=== PATIENT | female | born 1985 | race Caucasian/White ===

== ENCOUNTER 2020-01-25 13:09 | Outpatient (REF) | payer BC, SELFPAY ==
[2020-01-25 13:38] LABS: MANUAL DIFF FLAG NO
[2020-01-25 13:41] LABS: Basophils Absolute Auto 0.1 X10*3/uL (0.0-0.2); Basophils Percent Auto 0.5 % (0-2); Eosinophils Absolute Auto 0.1 X10*3/uL (0.0-0.4); Eosinophils Percent Auto 0.8 % (0-4); Hemoglobin 13.8 g/dl (12.0-16.0); Imm Gran Abs Auto 0.03 X10*3/uL (0.00-0.03); Imm Gran Pct Auto 0.3 % (0.0-0.4); Lymphocytes Percent Auto 21.6 % (20-40); Mean Corpuscular HGB Conc 32.9 g/dl (31.0-35.0); Mean Corpuscular Hemoglobin 28.3 pg (27.0-33.0); Mean Corpuscular Volume 86.1 fL (80-98); Mean Platelet Volume 8.9 fL (9.4-12.3); Monocytes Absolute Auto 0.9 X10*3/uL (0.1-1.2); Neutrophils Absolute Auto 6.1 X10*3/uL (2.0-8.3); Neutrophils Percent Auto 66.8 % (45-73); Platelet Count 473 X10*3/uL (160-400); Red Blood Count 4.88 X10*6/uL (4.20-5.50); Red Cell Distribution Width 13.2 % (11.0-16.0); White Blood Count 9.1 X10*3/uL (4.8-10.8)
[2020-01-25 14:16] LABS: Alanine Aminotransferase 20 U/L (0-31); Albumin Level 4.2 g/dL (3.5-5.0); Alkaline Phosphatase 79 U/L (39-117); Anion Gap 12 (12-20); Aspartate Amino Transferase 19 U/L (5-31); Bilirubin Total 0.3 mg/dL (0.0-1.0); Blood Urea Nitrogen 7 mg/dL (9-16); Carbon Dioxide 27 mmol/L (22-29); Chloride 104 mmol/L (96-108); Cholesterol 173 mg/dL; Estimated Glomerular Filt Rate > 60; Glucose Random 85 mg/dL (60-115); Potassium 4.3 mmol/l (3.3-5.1); Sodium 139 mmol/L (135-145); Total Protein 7.6 g/dL (6.5-8.0)
[2020-01-25 14:18] LABS: Calcium 9.3 mg/dL (8.4-10.2)
[2020-01-25 14:39] LABS: Free T4 (Free Thyroxine) 1.19 ng/dL (0.71-1.85); Thyroid Stimulating Hormone 0.37 mIU/mL (0.32-4.0)
[2020-01-25 15:31] LABS: Vitamin B12 564 pg/mL (200-900)
[2020-01-26 08:06] LABS: Thyroid Peroxidase Antibodies 1 IU/mL (<9)
== END 2020-01-25 13:10 | disposition home or self-care (01) ==
LOC: HO.10HDL 13:09
PROVIDERS: Visit Provider Internal Medicine
DX: R00.2 Palpitations (principal); R63.5 Abnormal weight gain; R53.83 Other fatigue
CPT/HCPCS: 36415; 80053; 82465; 82607; 84439; 84443; 85025; 86376

== ENCOUNTER 2020-02-19 07:58 | Outpatient (REF) | payer BC, SELFPAY ==
--- NOTE | 2020-02-19 | US_ITS ---
EXAMINATION: US THYROID CLINICAL INFORMATION: Enlarged thyroid. COMPARISON: Thyroid soft tissue ultrasound dated 10/29/2016 TECHNIQUE: Linear transducer norris-scale and color Doppler examination with attention to the region of the thyroid. FINDINGS: SIZE: Measurements of the thyroid lobes and nodules are given in sagittal, anteroposterior and transverse dimensions respectively. Right Thyroid Lobe: 5.6 x 1.8 x 1.9 cm, volume 10.2 mL. Previously 5.6 x 1.6 x 2.1 cm, volume 9.8 mL. Parenchyma: The gland echotexture is heterogeneous. Thyroid vascularity is normal. Left Thyroid Lobe: 5.7 x 1.7 x 1.9 cm, volume 9.6 mL. Previously 5.9 x 1.6 x 1.9 cm, volume 9.4 mL. Parenchyma: The gland echotexture is heterogeneous. Thyroid vascularity is normal. Isthmus: 0.8 cm in maximum AP dimension. Previously 0.4 cm. RIGHT THYROID LOBE: There is 1 nodule seen. 1. Location: Mid. Size: 0.2 x 0.1 x 0.2 cm. Previous: 0.2 x 0.1 x 0.2 cm. Nodule characteristics: Hypoechoic, irregularly-shaped and no intranodular flow. ISTHMUS: No nodules. LEFT THYROID LOBE: There are 2 nodules seen. 1. Location: Upper. Size: 0.3 x 0.1 x 0.2 cm. Previous: New. Nodule characteristics: Hypoechoic, smoothly marginated with no intranodular flow. 2. Location: Lower. Size: 0.3 x 0.2 x 0.2 cm. Previous: 0.3 x 0.2 x 0.2 cm. Nodule characteristics: Hypoechoic, smoothly marginated with no intranodular flow. NODES: No lymphadenopathy is seen in the tissue surrounding the thyroid gland. US/US thyroid IMPRESSION: Subcentimeter nonsuspicious nodules in both lobes. They are unchanged to previous study except for a new nodule in the left lobe.
== END 2020-02-19 07:59 | disposition home or self-care (01) ==
LOC: HO.US 07:58
PROVIDERS: PCP Internal Medicine; Visit Provider Internal Medicine
DX: E07.9 Disorder of thyroid, unspecified (principal)
CPT/HCPCS: 76536

== ENCOUNTER 2021-09-08 15:14 | Outpatient (REF) | payer BC, SELFPAY ==
[2021-09-08 15:38] LABS: MANUAL DIFF FLAG NO
[2021-09-08 16:24] LABS: Basophils Percent Auto 0.4 % (0-2); Eosinophils Absolute Auto 0.1 X10*3/uL (0.0-0.4); Eosinophils Percent Auto 0.8 % (0-4); Hematocrit 40.4 % (37.0-47.0); Hemoglobin 13.1 g/dl (12.0-16.0); Imm Gran Abs Auto 0.04 X10*3/uL (0.00-0.03); Imm Gran Pct Auto 0.4 % (0.0-0.4); Lymphocytes Absolute Auto 2.1 X10*3/uL (1.2-4.9); Lymphocytes Percent Auto 20.9 % (20-40); Mean Corpuscular HGB Conc 32.4 g/dl (31.0-35.0); Mean Corpuscular Hemoglobin 27.8 pg (27.0-33.0); Mean Corpuscular Volume 85.6 fL (80.0-98.0); Mean Platelet Volume 9.3 fL (9.4-12.3); Monocytes Absolute Auto 0.9 X10*3/uL (0.1-1.2); Monocytes Percent Auto 8.8 % (2-11); Neutrophils Absolute Auto 7.1 x10*3/uL (2.0-8.3); Neutrophils Percent Auto 68.7 % (45-73); Platelet Count 453 X10*3/uL (160-400); Red Blood Count 4.72 X10*6/uL (4.20-5.50); Red Cell Distribution Width 13.3 % (11.0-16.0); White Blood Count 10.3 X10*3/uL (4.8-10.8)
[2021-09-08 16:41] LABS: Alanine Aminotransferase 18 U/L (0-31); Alkaline Phosphatase 62 U/L (39-117); Anion Gap 12 (12-20); Aspartate Amino Transferase 18 U/L (5-31); Bilirubin Total 0.4 mg/dL (0.0-1.0); Blood Urea Nitrogen 11 mg/dL (9-16); Calcium 9.7 mg/dL (8.4-10.2); Carbon Dioxide 24 mmol/L (22-29); Chloride 106 mmol/L (96-108); Cholesterol 159 mg/dL; Estimated Glomerular Filt Rate > 60; Glucose Random 95 mg/dL (60-115); Potassium 4.4 mmol/L (3.3-5.1); Sodium 138 mmol/L (135-145); Total Protein 7.5 g/dL (6.5-8.0)
[2021-09-09 05:31] LABS: HBsAGNum1 0.49 S/CO (0.00-0.99); Hepatitis B Surface Antigen Negative (Negative)
[2021-09-10 21:34] LABS: Rubella IgG Antibody 3.56 Index
[2021-09-11 08:58] LABS: HBS Num1 > 1000.00 mIU/mL (0-7.99); ~Hepatitis B Surface Antibody REACTIVE (Nonreactive)
== END 2021-09-08 15:15 | disposition home or self-care (01) ==
LOC: HO.LAB 15:14
PROVIDERS: PCP Internal Medicine; Visit Provider Internal Medicine
DX: Z01.84 Encounter for antibody response examination (principal)
CPT/HCPCS: 36415; 80053; 82465; 85025; 86706; 86735; 86762; 86765; 86787; 87340

== ENCOUNTER → 2023-07-09 07:57 | Outpatient (BNVA) | payer SELFPAY | PROVIDERS: PCP Internal Medicine | DX: Z02.79 Encounter for issue of other medical certificate (principal) ==

== ENCOUNTER → 2023-07-16 07:54 | Outpatient (BNVA) | payer SELFPAY | PROVIDERS: PCP Internal Medicine | DX: R76.11 Nonspecific reaction to tuberculin skin test without active tuberculosis (principal) ==

== ENCOUNTER 2025-04-24 13:27 | Outpatient (REF) | payer OTHER, SELFPAY ==
[2025-04-24 17:10] LABS: Resp Syncy Virus RNA Qual PCR NEGATIVE (Negative); SARS COV2 PCR INHOUSE NEGATIVE (Negative)
== END 2025-04-24 13:28 | disposition home or self-care (01) ==
LOC: HO.LNP 13:27
PROVIDERS: Physician Assistant; PCP Internal Medicine
DX: B34.9 Viral infection, unspecified (principal); R09.89 Other specified symptoms and signs involving the circulatory and respiratory systems; Z03.818 Encounter for observation for suspected exposure to other biological agents ruled out
CPT/HCPCS: 87637

== ENCOUNTER 2025-04-24 13:27 | Outpatient (AMB) | payer OTHER, SELFPAY ==
--- NOTE | 2025-04-24 13:33 | AM.OFFWIN_ITS ---
Intake Vital Signs 04/24/25 13:38 Height 5 ft 2 in Weight 186 lb BMI 34.0 BP 120/68 Blood Pressure Location Lt brachial Position Sitting Pulse 112 H Pulse Source Pulse Oximeter Temp 98.9 F Temp Source Oral Pulse Oximetry (%) 95 Oxygen Delivery Method Room Air Intake Visit Reasons: EP Flu symptoms, aches, fever, cough Intake Note: pt presents with chest congestion with productive coughing, SOB, body aches, fevers x2 days Allergies No Known Allergies Allergy (Unverified 04/24/25 13:39) Do you need a note to return to daycare/school/sports/work: No HPI HPI Comments History of Present Illness Details History - The patient is a 39 year old female pr esenting for evaluation of cough, body aches, dyspnea, and fever. - Her symptoms began two days prior to t he visit on Wednesday evening. - She reports a fever which she felt alber ak after taking NyQuil. - She denies any personal history of ast hma, COPD, or prior use of an inhaler. - She denies sinus or head pain. - The cough has not interfered with her sleep. - She reports having just recovered from another illness one week ago. - She has received an influenza vaccinat ion. 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 Review of Systems - Constitutional: Reports fever and myal gil. - Respiratory: Reports cough, congestion , and dyspnea. Denies wheezing. - Head: Denies sinus pain or headache. All systems reviewed and are unremarkable except as noted in HPI Physical Exam General: Cooperative, healthy appearing, comfortable and no acute distress Orientation/consciousness: Patient oriented x3 Limitations: No limitations Head: Normal to inspection Ears: Hearing grossly normal bilaterally, external ears normal, EAC's normal bilaterally and TM's normal bilaterally Nose: Normal external nose present, Normal nares present and No nasal discharge present Face and sinus: Normal facial exam and sinuses nontender Mouth: Normal oral and palatal mucosa present and moist mucous membranes Throat: tonsils normal, no exudates, uvula midline, posterior oropharynx erythema Eyes: Appearance normal, both eyes and all related structures Neck: Normal visual inspection, full ROM Respiratory: Clear to auscultation bilaterally. Normal respiratory effort, able to speak in complete sentences, not actively coughing, no respiratory distress, not tachypneic, no tripod positioning and no use of accessory muscles Cardiovascular: Regular rate and rhythm. Normal S1 and S2 Skin: No rashes or lesions noted Neuro: Patient oriented x3 Extremities: Normal to inspection and Yes no clubbing, cyanosis or edema [facility] Social History (System 06/01/23 @ 14:49 by Argentina Pryor) Advance Directives Date on File: 01/25/20 Physical Exam Vital Signs: Last Vital Signs Temp 98.9 F 04/24/25 13:38 Pulse 115 H 04/24/25 13:38 BP 120/68 04/24/25 13:38 Pulse Ox 95 04/24/25 13:38 Oxygen Delivery Method Room Air 04/24/25 13:38 BMI result Body Mass Index 34.0 Assessment & Plan Assessment & Plan (1) Acute viral syndrome: Code(s): B34.9 - Viral infection, unspecified Plan: Plan Patient was informed and verbally consented to the use of an ambient scribe for clinic note documentation during this visit. - VSS, pt well appearing and PE unremarkable but she feels short of breath, which is new for her, no asthma or COPD. - The patient's presentation with fever, myalgia, cough, and dyspnea is consistent with an acute viral illness, likely influenza. - Diagnostic testing for influenza and COVID-19 was performed via swab, with results pending. - An albuterol inhaler has been prescribed for shortness of breath, to be used as two puffs every six hours as needed. - If the influenza test is positive, a prescription for Tamiflu will be sent to the pharmacy. - If the COVID-19 test is positive, Paxlovid will be considered. - The patient was advised on supportive care, including increased fluid intake for dehydration, acetaminophen for fever, and Motrin for body aches. - A work note will be provided for four days to allow for rest and to prevent transmission as she works in the ED. - Follow-up will occur via phone call the next morning with test results to determine if further medications are required. - The patient was instructed to return to the clinic or go to the ER for worsening shortness of breath, a fever that does not respond to Tylenol, or any acute worsening of her condition. Orders: Orders SARS-CoV2/FLU/RSV Today Anupama Davidson PA-C R09.89 - Other specified symptoms and signs involving the circulatory and respiratory systems Medications: New albuterol sulfate 90 mcg/actuation 2 puffs inhalation Q6H PRN 8.5 grams 0RF shortness of breath or wheezing or cough Riya Arias PA-C Coding Level of Care Code New Pt Level 3 (08756) Diagnoses Acute viral syndrome B34.9
[2025-04-24 13:38] VITALS: BP 120/68; PULSE 112; TEMP 37.2; O2SAT 95; BMI 34.0
--- OUTSIDE RECORDS SUMMARY | 2025-04-24 17:22 | XMS_ITS | Clinical Summary ---
Author Organization [facility] Address [address] [place] [phone] Phone Care Team Providers Care Computer Forensics Analyst Name Role Phone Unavailable Primary Care Provider Unavailabl e Immunizations Immunization Administration Dates Next Due DTP 07/24/1998, 8,05/26/1997,1996,01/24/1992 Hep B, ped/adol 03/06/1999,08/15/1998,07/12/1998 Hib (HbOC) 09/23/1998 IPV 07/24/1998, 8,05/26/1997,1996,01/24/1992 MMR 07/12/1998,01/25/1992 Td (adult) (Teniva), 5 Lf t etanus toxoid, PF, adsorbed 08/15/1998 Family History Relation Name Status Comments Father Alive Father: Alive a nd well Maternal Grandfather Materna l grandfather: Depression Maternal Grandmother Materna l grandmother: Hypertension Mother Alive Mother: Alive a nd well Paternal Grandfather Paterna l grandfather: Heart disease Paternal Grandmother Paterna l grandmother: Diabetes mellitus Sister 1 Alive Sister: Alive a nd well, Alive and well Sister 2 Alive Sister: Alive a nd well, Alive and well Social History Tobacco Use Types Packs/Day Years Used Date Smoking Tobacco: Never Assessed Comments Unknown Sex and Gender Information Value Date Recorded Sex Assigned at Not on file Legal Sex Female 4:12 PM EDT Gender Identity Not on file Sexual Orientation Not on file Plan of Treatment Health Maintenance Due Date Last Done Comments Varicella Vaccines (1 of 2 - 13+ 2-dose series) 12/30/1999 DTaP,Tdap,and Td Vaccines (5 - Tdap) 08/15/2008 08/15/1998, 07/24/1998, 07/24/1997, Additional history exists HPV Vaccines (1 - 3-dose SCDM series) 2013 Influenza Vaccines (#1) 2024 COVID-19 Vaccine (2024- season) 2024 MMR Vaccines Completed 07/12/1998, 01/25/1992 IPV Vaccines Completed 07/24/1998, 06/26, 05/26/1997, Additional history exists HIB Vaccines Aged Out 09/23/1998 No longer eligi ble based on patient's age to complete this topic Hepatitis B Vaccines Completed 03/06/1999, 08/15/1998, 07/12/1998 Hepatitis A Vaccines Aged Out No long er eligible based on patient's age to complete this topic Men B Vaccine Aged Out No longer elig ible based on patient's age to complete this topic Meningococcal Vaccine Aged Out No daya reji eligible based on patient's age to complete this topic Pneumococcal Vaccine Aged Out No long er eligible based on patient's age to complete this topic
--- OUTSIDE RECORDS SUMMARY | 2025-04-24 17:22 | XMS_ITS | Clinical Summary ---
Author Organization [facility] Address [address] [place] [id number] Phone Care Team Providers Care It Compliance Manager Name Role Phone Lauren Moore DO Primary Care Provider [phone] Kimberly Damon DISH TECHNICIAN Unavailable [phone] Allergies No known active allergies Medications ACNE MEDICATION 5 % gel Apply topically daily. 3 Active spironolactone (ALDACTONE) 50 MG tablet TAKE 1 TABLET BY MOUTH DAILY FOR 2 WEEKS, THEN INCREASE TO 1 TABLET TWICE A DAY 3 Active valACYclovir (VALTREX) 500 MG tablet Active Active Problems Problem Noted Date Diagnosed Date Family history of breast cancer 09/25/2022 Family History Medical History Relation Comments Breast cancer Mother Relation Status Comments Mother Social History Tobacco Use Types Packs/Day Years Used Date Smoking Tobacco: Former Cigarettes 0.3 15 Smokeless Tobacco: Never Tobacco Cessation:Counseling Given: Not Answered Alcohol Use Standard Drinks/Week Comments Yes 1 (1 standard drink = 0.6 oz pur e alcohol) Education Answer Date Recorded Are you interested in more education? Not on marita e 09/08/2022 Are you concerned about learning? Not on file 09/08/2022 No 09/08/2022 No 09/08/2022 Digital Access Answer Date Recorded No 09/15/2022 No 09/15/2022 Reliable internet access at home? Not on file 09/15/2022 Device with a working camera? Not on file Comments Unknown Sex and Gender Information Value Date Recorded Sex Assigned at Not on file Legal Sex Female 9:10 PM EDT Gender Identity Not on file Sexual Orientation Not on file Plan of Treatment Health Maintenance Due Date Last Done Comments POTASSIUM LEVEL 1986 DEPRESSION SCREENING 1998 SMOKING Hx and SMOKELESS TOBACCO SCREENING 12/30/1999 HEPATITIS C SCREENING 2004 HIV ONE-TIME SCREENING (18-6 5 YEARS) 2004 PAP SMEAR 12/30/2007 Adult Td,Tdap Booster 08/15/2008 08/15/1998 INFLUENZA VACCINE (#1) 2024 03/11/2021 COVID-19 VACCINE (2024-2 6 season) 2024 03/11/2021, 06/09/2020, 05/19/2020 HIB VACCINES Aged Out 09/23/1998 No longer eligi ble based on patient's age to complete this topic HEPATITIS A VACCINES Aged Out No long er eligible based on patient's age to complete this topic MENINGOCOCCAL VACCINES (ACWY) Aged Out No longer eligible based on patient's age to complete this topic MENINGOCOCCAL VACCINES (B) Aged Out N o longer eligible based on patient's age to complete this topic PNEUMOCOCCAL VACCINES (0-49 years) Aged Out No longer eligible b ased on patient's age to complete this topic Medical Devices Not on file Insurance [employer] [place] [address] [place], [place] [id number] [address] [place] [address] [place] [address] [place], [place] [id number] POS Care Teams It Compliance Manager Relationship Specialty Start Date End Date Lauren Moore DO [address] [place] [id number] [email or web address] PCP - General Family Medicine 09/07/22 Kimberly Damon NP [address] [place] [address] [email or web address] Nurse Practitioner 09/07/22 Additional Source Comments The information contained in this document represents components of the legal health record. It is not the complete legal health record.[facility]
--- OUTSIDE RECORDS SUMMARY | 2025-04-24 17:22 | XMS_ITS | Encounter Summary ---
Author Organization [facility] Address [address] [place] [address] Phone Care Team Providers Care Manager Utilities Name Role Phone Charito Wolf NP Primary Care Provider Beth chaudhari Encounter Details Date Type Department Care Team (Late st Contact Info) Description 12/10/2016 Conversion Encounter [facility] - [address] [address] Social History Tobacco Use Types Packs/Day Years Used Date Smoking Tobacco: Never Assessed Comments Unknown Sex and Gender Information Value Date Recorded Sex Assigned at Not on file Legal Sex Female 4:12 PM EDT Gender Identity Not on file Sexual Orientation Not on file documented as of this encounter Plan of Treatment Not on file documented as of this encounter Visit Diagnoses Not on filedocumented in this encounter Care Teams Manager Utilities Relationship Specialty Start Date End Date Charito Wolf NP PCP - General 12/04/16 10/08/22 documented as of this encounter
== END 2025-04-24 14:20 | disposition home or self-care (01) ==
PROVIDERS: PCP Internal Medicine; Visit Provider Physician Assistant
DX: B34.9 Viral infection, unspecified (principal)